=== PATIENT | female | born 1955 | race Caucasian/White ===

== ENCOUNTER 2018-02-17 15:23 | Emergency (ER) | payer MEDICARE, OTHER ==
[2018-02-17 16:14] VITALS: BP 159/76
--- NOTE | 2018-02-17 16:54 | UC ---
General HPI - HPI Summary HPI Summary: Patient c/o maxillary sinus pressure, headache and cold symptoms that started 2 days ago. For a moment felt heart was beating very fast but now back to normal. This morning she had fatigue, lightheaded/dizziness and sweating which prompted her to come to the > No n/v/d. Denies chest pain or SOB. 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 - History of Current Complaint Chief Complaint: UCDizziness Stated Complaint: DIZZINESS,SWEATS,COLD SXS Hx Obtained From: Patient Onset/Duration: Sudden Onset, Lasting Days Onset Severity: Mild Current Severity: Moderate Pain Intensity: 5 Associated Signs & Symptoms: Positive: Cough, Dizziness, Headache, Nausea, Weakness - Allergy/Home Medications Allergies/Adverse Reactions: Allergies Allergy/AdvReac Type Severity Reaction Status Date / Time Penicillins Allergy Hives Verified 02/17/18 15:54 walnut Allergy Hives Verified 02/17/18 15:54 Home Medications: Home Medications Aspirin EC TAB* [Ecotrin EC TAB*] 325 mg PO DAILY 02/17/18 [History Confirmed ] Calcium Carbonate/Vitamin D3 [Calcium 600 + Vit D Tablet] 1 each PO DAILY [History Confirmed 02/17/18] Cilostazol TAB* [Pletal TAB*] 75 mg PO BID 02/17/18 [History Confirmed 02/17/18] Lisinopril TAB* [Prinivil TAB*] 10 mg PO DAILY 02/17/18 [History Confirmed 02/17] Metoprolol Succinate XL TAB* [Toprol XL TAB*] 50 mg PO DAILY 02/17/18 [History Confirmed 02/17/18] Omeprazole CAP* [Prilosec CAP* 20 MG] 20 mg PO BID 02/17/18 [History Confirmed 02/17/18] Simvastatin [Zocor] 20 mg PO DAILY 02/17/18 [History Confirmed 02/17/18] PMH/Surg Hx/FS Hx/Imm Hx Endocrine History: Dyslipidemia Cardiovascular History: Cardiac Disease, Hypertension GI/ History: Gastroesophageal Reflux - Surgical History Surgical History: Yes Surgery Procedure, Year, and Place: choly. appy. neck cyst. rotor cuff. pacemaker. bladder sling. carotid bypass. PAD - Family History Known Family History: Positive: Hypertension, Diabetes - Social History Alcohol Use: None Substance Use Type: None Smoking Status (MU): Current Some Day Smoker Type: Cigarettes Amount Used/How Often: socially - Immunization History Hx Tetanus, Diphtheria Vaccination: Yes Vaccination Up to Date: Yes Review of Systems Constitutional: Chills, Fatigue ENT: Sinus Congestion, Sinus Pain/Tenderness Respiratory: Cough Gastrointestinal: Nausea All Other Systems Reviewed And Are Negative: Yes Physical Exam Triage Information Reviewed: Yes Appearance: Well-Appearing, No Pain Distress, Thin Vital Signs: Initial Vital Signs Temp 98.1 F 02/17/18 15:44 Pulse 66 02/17/18 15:44 Resp 15 02/17/18 15:44 BP 159/76 02/17/18 15:44 Pulse Ox 98 02/17/18 15:44 Vital Signs Reviewed: Yes Eyes: Positive: Conjunctiva Clear ENT: Positive: Hearing grossly normal, Pharynx normal, Nasal congestion, Nasal drainage, TMs normal, Sinus tenderness, Uvula midline Neck: Positive: Supple, Nontender, No Lymphadenopathy Respiratory: Positive: Chest non-tender, Lungs clear, Normal breath sounds, No respiratory distress Cardiovascular: Positive: RRR, No Murmur, Pulses Normal, Brisk Capillary Refill Abdomen Description: Positive: Nontender, No Organomegaly Bowel Sounds: Positive: Present Musculoskeletal: Positive: Strength Intact, ROM Intact, No Edema Skin Exam: Normal Course/Dx - Course Course Of Treatment: 62 yo patient with atherosclerosis with multiple target organs who complains of pain on sinuses and fatigue/malaise for 2 days. Start bactrim DS as prescribed for 10 days. Patient states her kidney function is completely normal as per lab results by cardiology/vascular/PCP doctors. EKG shows NSR with atrial enlargement and LBBB. Follow up with PCP in 1 week, return to earlier if symptoms do not resolve. - Differential Dx - Multi-Symptom Provider Diagnoses: Bilateral maxillary sinusitis. HTN Discharge - Sign-Out/Discharge Documenting (check all that apply): Patient Departure All imaging exams completed and their final reports reviewed: No - Discharge Plan Condition: Stable Disposition: HOME Patient Education Materials: Sinusitis (ED), Sulfamethoxazole/Trimethoprim (By mouth) Referrals: Waqar Gonzalez MD [Primary Care Provider] - Additional Instructions: Please follow up with your primary care doctor in a week - Billing Disposition and Condition Condition: STABLE Disposition: Home
--- NOTE | 2018-02-19 09:58 | UC ---
Discharge - Sign-Out/Discharge Documenting (check all that apply): Post-Discharge Follow Up All imaging exams completed and their final reports reviewed: No Studies - Discharge Plan Condition: Stable Disposition: HOME Prescriptions: Sulfamethox/Trimethoprim DS* [Bactrim DS 800/160 TAB*] 1 tab PO BID 10 Days #20 tab Patient Education Materials: Sulfamethoxazole/Trimethoprim (By mouth), Sinusitis (ED) Referrals: Waqar Gonzalez MD [Primary Care Provider] - Additional Instructions: Please follow up with your primary care doctor in a week - Billing Disposition and Condition Condition: STABLE Disposition: Home
== END 2018-02-17 17:13 | disposition home or self-care (01) ==
LOC: UCCORT 15:23
DX: J32.0 Chronic maxillary sinusitis (principal); I10 Essential (primary) hypertension; K21.9 Gastro-esophageal reflux disease without esophagitis; Z88.0 Allergy status to penicillin; E78.5 Hyperlipidemia, unspecified; F17.210 Nicotine dependence, cigarettes, uncomplicated
CPT/HCPCS: 93005; 99202; G0463